=== PATIENT | male | born 1970 | race American Indian/Alaskan Native ===

== ENCOUNTER → 2018-03-24 | Outpatient (CLI) | payer OTHER ==
[2018-03-24 17:50] LABS: BASOPHILS ABSOLUTE AUTO 0.08 K/mm3 (0.00-0.23); BASOPHILS PERCENT AUTO 1 % (0-2); EOSINOPHILS ABSOLUTE AUTO 0.06 K/mm3 (0.00-0.68); EOSINOPHILS PERCENT AUTO 1 % (0-6); Hematocrit 40.2 % (37.0-53.0); Hemoglobin 13.8 g/dL (13.5-17.5); IMMATURE GRAN ABSOLUTE AUTO 0.02 K/mm3 (0.00-0.10); IMMATURE GRAN PERCENT AUTO 0 % (0-1); LYMPHOCYTES ABSOLUTE AUTO 3.11 K/mm3 (0.84-5.20); LYMPHOCYTES PERCENT AUTO 35 % (21-46); MONOCYTES ABSOLUTE AUTO 0.63 K/mm3 (0.16-1.47); MONOCYTES PERCENT AUTO 7 % (4-13); Mean Corpuscular HGB 29.5 pg (26.0-34.0); Mean Corpuscular HGB Conc 34.3 g/dL (31.5-36.5); Mean Corpuscular Volume 86 fL (80-100); Mean Platelet Volume 9.3 fL (9.1-12.4); NEUTROPHILS PERCENT AUTO 56 % (41-73); Platelet Count 218 K/mm3 (150-400); RDW Coefficient Variation 12.6 % (11.7-14.2); RDW Standard Deviation 39.5 fL (35.1-46.3); Red Blood Cell Count 4.68 M/mm3 (4.30-5.90)
== END | disposition home or self-care (01) ==
LOC: LAB SHORT 17:47 → LAB EV 17:47
PROVIDERS: Physician Assistant
DX: R22.1 Localized swelling, mass and lump, neck (principal)
CPT/HCPCS: 84443; 85025

== ENCOUNTER 2020-11-26 12:17 | Inpatient (IN) | payer OTHER ==
[~2020-11-26] VITALS: Ht 170.2 cm; Wt 94.4 kg
[2020-11-26] MEDS ORDERED: LEVOTHYROXINE112 MC2 PO (12:30)
[2020-11-26 12:35] LABS: BASOPHILS ABSOLUTE AUTO 0.06 K/mm3 (0.00-0.23); BASOPHILS PERCENT AUTO 1 % (0-2); EOSINOPHILS ABSOLUTE AUTO 0.01 K/mm3 (0.00-0.68); EOSINOPHILS PERCENT AUTO 0 % (0-6); Hematocrit 46.4 % (37.0-53.0); Hemoglobin 16.2 g/dL (13.5-17.5); IMMATURE GRAN ABSOLUTE AUTO 0.04 K/mm3 (0.00-0.10); IMMATURE GRAN PERCENT AUTO 0 % (0-1); LYMPHOCYTES ABSOLUTE AUTO 2.84 K/mm3 (0.84-5.20); LYMPHOCYTES PERCENT AUTO 27 % (21-46); MONOCYTES ABSOLUTE AUTO 0.63 K/mm3 (0.16-1.47); MONOCYTES PERCENT AUTO 6 % (4-13); Mean Corpuscular HGB 29.2 pg (26.0-34.0); Mean Corpuscular HGB Conc 34.9 g/dL (31.5-36.5); Mean Corpuscular Volume 84 fL (80-100); Mean Platelet Volume 8.9 fL (9.1-12.4); NEUTROPHILS ABSOLUTE AUTO 6.81 K/mm3 (1.96-9.15); NEUTROPHILS PERCENT AUTO 66 % (41-73); Platelet Count 272 K/mm3 (150-400); RDW Coefficient Variation 12.5 % (11.7-14.2); RDW Standard Deviation 38.3 fL (35.1-46.3); Red Blood Cell Count 5.54 M/mm3 (4.30-5.90); White Blood Cell Count 10.39 K/mm3 (4.00-11.30)
[2020-11-26 13:07] LABS: Alanine Aminotransfer (ALT/SGP 57 U/L (12-78); Albumin, Blood 4.4 g/dL (3.4-5.0); Albumin/Globulin Ratio 1.1 (0.8-1.8); Alk Phos 113 U/L (50-136); Anion Gap 9 mmol/L (6-16); Aspartate Aminotrans (AST/SGOT 61 U/L (12-37); Bilirubin, Total 0.7 mg/dL (0.1-1.0); Blood Urea Nitrogen 19 mg/dL (8-24); Bun/Creatinine Ratio 21.9 (12.0-20.0); CO2, Blood 24 mmol/L (21-32); Calcium, Blood 9.8 mg/dL (8.5-10.1); Chloride, Blood 104 mmol/L (98-108); Creatinine, Blood 0.87 mg/dL (0.60-1.20); Globulin, Blood 3.9 g/dL (2.2-4.0); Glomerular Filtration Rate >60 (60-); Glucose, Blood 132 mg/dL (70-99); International Normalized Ratio 0.94; Potassium, Blood 3.4 mmol/L (3.5-5.5); Prothrombin Time Results 10.1 Sec (9.7-11.5); Sodium, Blood 137 mmol/L (136-145); Total Protein, Blood 8.3 g/dL (6.4-8.2)
[2020-11-26 14:15] LABS: Influenza A, PCR NEGATIVE (NEGATIVE); Influenza B, PCR NEGATIVE (NEGATIVE); Resp Syncytial Virus, PCR NEGATIVE (NEGATIVE); SARS-Cov-2 (COVID-19) PCR, MMC POSITIVE (NEGATIVE)
--- NOTE | 2020-11-26 15:55 | NUR ---
ASSUMED CARE FROM [facility] PT ARRIVED FROM [facility] AT APPROXIMATELY 1520. TR AND ARM BOARD IN PLACE, PT HAD TWO LAD STENTS PLACED VIA RADIAL ACCESS. PT IS A&Ox4 AND IS SBA TO THE BATHROOM. PT IS ON RA, VS STABLE. RADIAL SITE HAS NO DRAINAGE, NO PAIN, PT HAS FULL SENSATION IN THE FINGERS, NO VISIBLE SIGNS OF HEMATOMA. PT REPORTS HAVING COVID IN 2020, POC TESTING CAME BACK NEGATIVE, RAPID TEST WAS POSITIVE. 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 PT IS RESTING IN BED AT THIS TIME
--- NOTE | 2020-11-26 17:53 | NUR ---
SHIFT SUMMARY PT ARRIVED FROM [facility] THIS AFTERNOON WITH TR BAND AND ARMBOARD IN PLACE FOLLOWING ANGIOGRAM WITH 2 LAD STENTS PLACED VIA RIGHT RADIAL ACCESS. PT REPORTS DULL CHEST PAIN BUT DENIES IT GETTING WORSE OR BEING SHARP. PT HAS BEEN GIVEN TYLENOL AND HAS A NITRO PATCH IN PLACE TO HELP WITH THE CHEST SORENESS. VS STABLE, PT RESTING IN BED. PT ABLE TO WALK TO THE BATHROOM, SBA. PT ENCOURAGED TO BE GENTLE USING HIS ARM. SCDS IN PLACE.
--- NOTE | 2020-11-26 19:10 | NUR ---
ASSUMED CARE RECEIVED REPORT FROM ALEKSANDRA MOORE; PT A&O X 4; VSS; MINOR CHEST PAIN 2 OF 10 REPORTED; TR BAND IN PLACE TO R RADIAL; ARM BOARD IN PLACE; EDUCATION PROVIDED TO NOT USE R ARM; O2 SATS >93 ON RA; NO DISTRESS NOTED; WATCHING TV; BELONGINGS AND CALL LIGHT IN REACH; BED IN LOWEST POSITION.
--- NOTE | 2020-11-26 22:40 | NUR ---
UPDATE PT REPORTING SIGNIFICANT CHEST PAIN W/ TINGLING IN HANDS; DISCUSSED W/ ISSA MARTINES, APPLICATION PROGRAMMER ANALYST; NEW ORDER FOR FENTANYL AND STAT TROPONIN; PT STATES 6 OF 10 PAIN; PT RR 22, STATING BREATHING FAST IS HELPING W/ PAIN; CALL LIGHT IN REACH
--- NOTE | 2020-11-26 23:36 | NUR ---
UPDATE NOTIFIED [facility] OF TROPONIN AND FENTANYL ADMINISTRATION; PAIN LEVEL 3 OF 10; PT STATES TINGLING IN FINGERS; FACE IS FLUSHED AND RR 22; NO TELE CHANGES NOTED; NOTIFIED AUTO ADJUDICATION SPECIALIST OF PT CONDITION; NEW ORDER GIVEN FOR PRN MORPHINE; WILL CONTINUE TO MONITOR CLOSELY.
--- NOTE | 2020-11-27 05:24 | NUR ---
SHIFT SUMMARY PT A&O X 4; PLEASANT & COMPLIANT W/ CARE; VSS; CHEST PAIN SOMEWHAT IMPROVED; O2 SATS >03 ON RA; PT SLEPT A FEW HOURS IN BETWEEN INTERVENTIONS; CALLS APPROPRIATELY; CURRENTLY DENIES NEEDS; CALL LIGHT IN REACH; BED IN LOWEST POSITION; WILL CONTIUE TO MONITOR CLOSELY UNTIL HAND OFF TO DAY SHIFT RN.
[2020-11-27 08:04] LABS: BASOPHILS ABSOLUTE AUTO 0.04 K/mm3 (0.00-0.23); BASOPHILS PERCENT AUTO 0 % (0-2); EOSINOPHILS ABSOLUTE AUTO 0.03 K/mm3 (0.00-0.68); EOSINOPHILS PERCENT AUTO 0 % (0-6); Hematocrit 43.7 % (37.0-53.0); Hemoglobin 15.1 g/dL (13.5-17.5); IMMATURE GRAN ABSOLUTE AUTO 0.03 K/mm3 (0.00-0.10); IMMATURE GRAN PERCENT AUTO 0 % (0-1); LYMPHOCYTES ABSOLUTE AUTO 2.03 K/mm3 (0.84-5.20); LYMPHOCYTES PERCENT AUTO 19 % (21-46); MONOCYTES ABSOLUTE AUTO 0.96 K/mm3 (0.16-1.47); MONOCYTES PERCENT AUTO 9 % (4-13); Mean Corpuscular HGB 29.4 pg (26.0-34.0); Mean Corpuscular HGB Conc 34.6 g/dL (31.5-36.5); Mean Corpuscular Volume 85 fL (80-100); Mean Platelet Volume 9.2 fL (9.1-12.4); NEUTROPHILS ABSOLUTE AUTO 7.84 K/mm3 (1.96-9.15); NEUTROPHILS PERCENT AUTO 72 % (41-73); Platelet Count 239 K/mm3 (150-400); RDW Coefficient Variation 12.8 % (11.7-14.2); RDW Standard Deviation 39.9 fL (35.1-46.3); Red Blood Cell Count 5.13 M/mm3 (4.30-5.90); White Blood Cell Count 10.93 K/mm3 (4.00-11.30)
[2020-11-27 08:35] LABS: Alanine Aminotransfer (ALT/SGP 63 U/L (12-78); Albumin, Blood 3.7 g/dL (3.4-5.0); Alk Phos 95 U/L (50-136); Anion Gap 9 mmol/L (6-16); Aspartate Aminotrans (AST/SGOT 210 U/L (12-37); Bilirubin, Total 1.4 mg/dL (0.1-1.0); Blood Urea Nitrogen 14 mg/dL (8-24); Bun/Creatinine Ratio 16.1 (12.0-20.0); CHOL/HDL RATIO 4.6; CO2, Blood 23 mmol/L (21-32); Calcium, Blood 8.8 mg/dL (8.5-10.1); Chloride, Blood 107 mmol/L (98-108); Cholesterol 226 mg/dL (50-200); Creatinine, Blood 0.87 mg/dL (0.60-1.20); Globulin, Blood 3.7 g/dL (2.2-4.0); Glomerular Filtration Rate >60 (60-); Glucose, Blood 119 mg/dL (70-99); HDL Cholesterol 49 mg/dL (>39); LDL/HDL RATIO 2.9; Low Density Lipoprotein Chol 144 mg/dL (0-110); Potassium, Blood 3.7 mmol/L (3.5-5.5); Sodium, Blood 139 mmol/L (136-145); Total Protein, Blood 7.4 g/dL (6.4-8.2); Triglycerides 167 mg/dL (30-160); Very Low Density Lipoprot Chol 33 mg/dL (6-32)
--- NOTE | 2020-11-27 08:47 | NUR ---
ASSUMED CARE FROM NOC RN PT WAS AWAKE DURING SHIFT REPORT. PT REPORTED A HEADACHE THIS MORNING BUT DENIED ANY CHEST PAIN, PRESSURE OR DISCOMFORT. PT REQUESTED TYLENOL FOR THE HEADACHE AND REFUSED THE NITRO PATCH THIS MORNING HE IS HAVING 0/10 CHEST PAIN. VS STABLE, PT ON RA. PT HAS ARMBOARD IN PLACE, TR BAND WAS REMOVED DURING NOC SHIFT AND TEGADERM WAS PUT INTO PLACE. NO DRAINAGE OR PAIN OR VISIBLE SIGN OF HEMATOMA. SOFT NONTENDER AT THE SITE, AND FULL SENSATION IN THE FINGERS. PT RESTING AT THIS TIME
--- NOTE | 2020-11-27 17:31 | NUR ---
SHIFT SUMMARY PT HAS REMAINED ON RA AND VS STABLE TODAY. PT DENIES CHEST PAIN, PRESSURE AND DISCOMFORT TODAY. PT HAS NOT BEEN SOB AND HAS BEEN INDEPENDENT IN THE ROOM TODAY WELL WHILE AMBULATING IN THE [place]. PT HAS SPENT THE AFTERNOON VISITING WITH HIS AND RELAXING WHILE WATCHING TV.
--- NOTE | 2020-11-27 19:35 | NUR ---
ASSUMED CARE RECEIVED REPORT FROM [facility] RN; PT A&O X 4; VSS; NSR NOTED ON TELE; O2 SATS >93 ON RA; PT CURRENTLY RESTING IN BED, NO DISTRESS NOTED; BELONGINGS AND CALL LIGHT IN REACH; BED IN LOWEST POSTION.
--- NOTE | 2020-11-28 04:35 | NUR ---
SHIFT SUMMARY PT A&O X 4; DENIES CHEST PAIN; VSS; NSR NOTED ON TELE; HR 60'S; O2 SATS >93 ON RA; PT STATES HE FEELS MUCH IMPROVED THIS SHIFT; INDEPENDENT IN ROOM; NO ACUTE CHANGES; CALL LIGHT IN REACH; BED IN LOWEST POSITION; WILL CONTINUE TO MONITOR CLOSELY UNTIL HAND OFF TO DAY SHIFT RN.
--- NOTE | 2020-11-28 09:56 | NUR ---
ASSUMED CARE FROM NOC RN, MORNING UPDATE PT WAS ASLEEP DURING MORNING REPORT. PT WOKE FOR MORNING MEDS, VS, ASSESSMENT AND BREAKFAST SOON AFTER. PT DENIED CHEST PAIN, PRESSURE AND DISCOMFORT THIS MORNING. VS STABLE, PT ON RA AND IS AWAITING DISCHARGE THIS MORNING
[2020-11-28] MEDS ORDERED: ASPI81CH PO (10:32)
[2020-11-28] MEDS ORDERED: ATOR80 PO (10:34)
[2020-11-28] MEDS ORDERED: CARV6.25 PO (10:35)
[2020-11-28] MEDS ORDERED: Lisinopril2.5 MG PO (10:36)
[2020-11-28] MEDS ORDERED: BRILINTA90 M1 PO (10:37)
[2020-11-28] MEDS ORDERED: NITR.4SL SL (10:38)
--- NOTE | 2020-11-28 11:20 | NUR ---
DISCHARGE PT RECEIVED DISCHARGE EDUCATION REGARDING NEW MEDICATIONS, HEART HEALTHY DIET, AND RADIAL SITE ACCESS AFTER CARE. PT VERBALLY AGREED AND SIGNED THE DISCHARGE CONTRACT. IV'S WERE DISCONTINUED AND PT TOLERATED WELL, CATH TIP INTACT. TELE WAS DC'D. VS STABLE, PT ON RA AND DENIED CHEST PAIN AND DISCOMFORT UPON DISCHARGE. PT LEFT THE UNIT AT APPROXIMATELY 1120 AND WALKED OUT TO THE CAR TO RETURN HOME ESCORTED BY ALEKSANDRA HUI AND HIS SPOUSE. PT WAS PROVIDED WITH FOLLOW UP PCP AND CARDIOLOGY APPOINTMENTS WELL A COUPON FOR [facility].
[2020-11-29] MEDS ORDERED: ONDA4ODT MM (10:57)
[2020-11-29] MEDS ORDERED: EFFIENT10 MG PO (11:00)
== END 2020-11-28 11:20 | disposition home or self-care (01) | DRG 246 ==
LOC: ER 12:17 → PCU 12:58 → ER 13:56 → ICUW 14:14 → PCU 15:25
PROVIDERS: Emergency Medicine; Nurse Practitioner Acute Care; Pharmacist; ADMIT Internal Medicine
PROC: 027035Z Dilation of Coronary Artery, One Artery with Two Drug-eluting Intraluminal Devices, Percutaneous Approach (ICD-10-PCS; principal; 2020-11-26)
PROC: 8E0ZXY6 Isolation (ICD-10-PCS; 2020-11-26)
PROC: 4A023N7 Measurement of Cardiac Sampling and Pressure, Left Heart, Percutaneous Approach (ICD-10-PCS; 2020-11-26)
PROC: B2111ZZ Fluoroscopy of Multiple Coronary Arteries using Low Osmolar Contrast (ICD-10-PCS; 2020-11-26)
DX: I21.4 Non-ST elevation (NSTEMI) myocardial infarction (principal); U07.1 COVID-19; I10 Essential (primary) hypertension; I25.10 Atherosclerotic heart disease of native coronary artery without angina pectoris; E78.00 Pure hypercholesterolemia, unspecified; E78.5 Hyperlipidemia, unspecified; E89.0 Postprocedural hypothyroidism; Z79.899 Other long term (current) drug therapy; Z87.891 Personal history of nicotine dependence
CPT/HCPCS: 0241U; 36415; 71045; 80053; 80061; 83036; 84484; 85025; 85347; 85610; 85730; 93005; 93010; 93306; 93458; 96374; 99152; 99153; 99285-25; A9270; C1725; C1769; C1874; C1887; C1894; C9600; J1644; J2250; J2270; J3010; J3246; J7030; J7050; Q9967

== ENCOUNTER 2020-11-28 22:17 | Observation (INO) | payer OTHER ==
[~2020-11-28] VITALS: Ht 170.2 cm; Wt 89.4 kg
[~2020-11-28 22:17] MED LIST: ASPI81CH PO; ATOR80 PO; BRILINTA90 M1 PO; CARV6.25 PO; LEVOTHYROXINE112 MC2 PO; Lisinopril2.5 MG PO; NITR.4SL SL
[2020-11-28 23:00] LABS: BASOPHILS ABSOLUTE AUTO 0.08 K/mm3 (0.00-0.23); BASOPHILS PERCENT AUTO 1 % (0-2); EOSINOPHILS ABSOLUTE AUTO 0.16 K/mm3 (0.00-0.68); EOSINOPHILS PERCENT AUTO 2 % (0-6); Hematocrit 42.7 % (37.0-53.0); IMMATURE GRAN ABSOLUTE AUTO 0.02 K/mm3 (0.00-0.10); IMMATURE GRAN PERCENT AUTO 0 % (0-1); LYMPHOCYTES ABSOLUTE AUTO 2.75 K/mm3 (0.84-5.20); LYMPHOCYTES PERCENT AUTO 29 % (21-46); MONOCYTES ABSOLUTE AUTO 0.91 K/mm3 (0.16-1.47); MONOCYTES PERCENT AUTO 10 % (4-13); Mean Corpuscular HGB 29.9 pg (26.0-34.0); Mean Corpuscular HGB Conc 35.1 g/dL (31.5-36.5); Mean Corpuscular Volume 85 fL (80-100); Mean Platelet Volume 9.3 fL (9.1-12.4); NEUTROPHILS ABSOLUTE AUTO 5.44 K/mm3 (1.96-9.15); NEUTROPHILS PERCENT AUTO 58 % (41-73); Platelet Count 261 K/mm3 (150-400); RDW Coefficient Variation 12.9 % (11.7-14.2); RDW Standard Deviation 39.8 fL (35.1-46.3); Red Blood Cell Count 5.01 M/mm3 (4.30-5.90); White Blood Cell Count 9.36 K/mm3 (4.00-11.30)
[2020-11-28 23:31] LABS: Alanine Aminotransfer (ALT/SGP 53 U/L (12-78); Albumin, Blood 3.4 g/dL (3.4-5.0); Albumin/Globulin Ratio 0.8 (0.8-1.8); Alk Phos 113 U/L (50-136); Anion Gap 7 mmol/L (6-16); Aspartate Aminotrans (AST/SGOT 84 U/L (12-37); Bilirubin, Total 0.8 mg/dL (0.1-1.0); Blood Urea Nitrogen 27 mg/dL (8-24); Bun/Creatinine Ratio 25.5 (12.0-20.0); CO2, Blood 23 mmol/L (21-32); Calcium, Blood 8.7 mg/dL (8.5-10.1); Chloride, Blood 108 mmol/L (98-108); Creatinine, Blood 1.06 mg/dL (0.60-1.20); Glomerular Filtration Rate >60 (60-); Glucose, Blood 115 mg/dL (70-99); Potassium, Blood 3.8 mmol/L (3.5-5.5); Sodium, Blood 138 mmol/L (136-145); Total Protein, Blood 7.4 g/dL (6.4-8.2)
--- NOTE | 2020-11-29 05:18 | NUR ---
PT TO PCU 11 VIA [facility] WITH ED RN @ 1210, PT SBA TO HOSPITAL BED, ORIENTED x4. VSS, PT ON ROOM AIR, PT DENIES CP AND STS ONLY FEELS SHORT OF BREATH WHEN HE IS FALLING ASLEEP. PT DENIES GI/ ISSUES. CALL LIGHT WITHIN REACH.
[2020-11-29] MEDS ORDERED: ONDA4ODT MM (10:57)
[2020-11-29] MEDS ORDERED: EFFIENT10 MG PO (11:00)
== END 2020-11-29 11:39 | disposition home or self-care (01) ==
LOC: ER 22:17 → PCU 22:18
PROVIDERS: Emergency Medicine; ADMIT Family Medicine
DX: R06.01 Orthopnea (principal); I21.4 Non-ST elevation (NSTEMI) myocardial infarction; U07.1 COVID-19; I10 Essential (primary) hypertension; E78.5 Hyperlipidemia, unspecified; E89.0 Postprocedural hypothyroidism; I25.10 Atherosclerotic heart disease of native coronary artery without angina pectoris; I95.9 Hypotension, unspecified; Z95.5 Presence of coronary angioplasty implant and graft; Z79.82 Long term (current) use of aspirin; Z79.02 Long term (current) use of antithrombotics/antiplatelets; Z87.891 Personal history of nicotine dependence
CPT/HCPCS: 36415; 71045; 71260; 80053; 83605; 83880; 84484; 85025; 93005; 93010; 94644; 96372; 99285-25; A9270; G0378; J1650; Q9967

== ENCOUNTER → 2020-12-04 | Outpatient (CLI) | payer OTHER ==
[~2020-12-04] MED LIST changes: +EFFIENT10 MG PO; +ONDA4ODT MM
== END | disposition home or self-care (01) ==
LOC: LAB SHORT 08:11 → PLD 08:11
DX: L82.1 Other seborrheic keratosis (principal)
CPT/HCPCS: 88305

== ENCOUNTER 2021-10-14 08:44 | Day surgery (SDC) | payer OTHER ==
[~2021-10-14] VITALS: Ht 170.2 cm; Wt 96.7 kg
--- NOTE | 2021-10-14 09:45 | NUR ---
10/14/21 0945 JAISON MCCRARY History, Chart, Medications and Allergies reviewed before start of procedure. 3-LEAD EKG REVIEWED WITH PHYSICIAN PRIOR TO START OF PROCEDURE. MONITOR INTACT WITH CONTINUOUS PULSE OXIMETRY AND INTERMITTENT BP. O2 VIA N/C INTACT THROUGHOUT SEDATION/PROCEDURE. PATIENT DETERMINED TO BE ASA APPROPRIATE FOR PROPOFOL SEDATION PRIOR TO START OF PROCEDURE BY DR. GARCIA.
--- NOTE | 2021-10-14 10:49 | NUR ---
Patient up to Ambulate independently. Gait steady. Discharge instructions reviewed with patient. Patient verbalizes understanding. Copy given to patient to take home. Discharged via wheelchair to private car for ride home WITH
== END 2021-10-14 10:45 | disposition home or self-care (01) ==
LOC: ORSCMMR 08:44 → ORD 09:45 → ORSCMMR 10:45
DX: Z12.11 Encounter for screening for malignant neoplasm of colon (principal); Z80.0 Family history of malignant neoplasm of digestive organs; D12.0 Benign neoplasm of cecum; D12.5 Benign neoplasm of sigmoid colon; I25.2 Old myocardial infarction; I25.10 Atherosclerotic heart disease of native coronary artery without angina pectoris; E03.9 Hypothyroidism, unspecified; Z79.01 Long term (current) use of anticoagulants; Z79.82 Long term (current) use of aspirin; Z79.899 Other long term (current) drug therapy
CPT/HCPCS: 88305; J2250; J2704; J7120

== ENCOUNTER 2024-08-04 22:22 | Emergency (ER) | payer OTHER ==
[~2024-08-04] VITALS: Ht 170.2 cm; Wt 89.8 kg
[2024-08-04 23:03] LABS: BASOPHILS ABSOLUTE AUTO 0.07 K/mm3 (0.00-0.23); BASOPHILS PERCENT AUTO 1 % (0-2); EOSINOPHILS ABSOLUTE AUTO 0.17 K/mm3 (0.00-0.68); EOSINOPHILS PERCENT AUTO 3 % (0-6); Hemoglobin 15.3 g/dL (13.5-17.5); IMMATURE GRAN ABSOLUTE AUTO 0.01 K/mm3 (0.00-0.10); IMMATURE GRAN PERCENT AUTO 0 % (0-1); LYMPHOCYTES ABSOLUTE AUTO 2.46 K/mm3 (0.84-5.20); LYMPHOCYTES PERCENT AUTO 38 % (21-46); MONOCYTES ABSOLUTE AUTO 0.43 K/mm3 (0.16-1.47); MONOCYTES PERCENT AUTO 7 % (4-13); Mean Corpuscular HGB 31.3 pg (26.0-34.0); Mean Corpuscular HGB Conc 36.4 g/dL (31.5-36.5); Mean Corpuscular Volume 86 fL (80-100); Mean Platelet Volume 8.5 fL (9.1-12.4); NEUTROPHILS PERCENT AUTO 51 % (41-73); Platelet Count 218 K/mm3 (150-400); Red Blood Cell Count 4.89 M/mm3 (4.30-5.90); White Blood Cell Count 6.44 K/mm3 (4.00-11.30)
[2024-08-04 23:19] LABS: Albumin, Blood 3.4 g/dL (3.4-5.0); Bilirubin, Total 0.8 mg/dL (0.1-1.0); Bun/Creatinine Ratio 20.3 (12.0-20.0); Creatinine, Blood 0.94 mg/dL (0.60-1.20); Globulin, Blood 3.4 g/dL (2.2-4.0); Potassium, Blood 3.3 mmol/L (3.5-5.5); Total Protein, Blood 6.8 g/dL (6.4-8.2)
[2024-08-05] MEDS ORDERED: Potassium Chloride 20 MEQ TabCR PO ONE (00:05)
[2024-08-05 00:09] VITALS: BP 148/94
== END 2024-08-05 00:15 | disposition home or self-care (01) ==
LOC: ER 22:22
PROVIDERS: Student in an Organized Health Care Education/Training Program
DX: K80.20 Calculus of gallbladder without cholecystitis without obstruction (principal); I25.2 Old myocardial infarction; E03.9 Hypothyroidism, unspecified; I10 Essential (primary) hypertension; E78.5 Hyperlipidemia, unspecified; Z79.82 Long term (current) use of aspirin; Z79.899 Other long term (current) drug therapy; Z88.8 Allergy status to other drugs, medicaments and biological substances
CPT/HCPCS: 80053; 83690; 84484; 85025; 93005; 93010; 99284-25; A9270

== ENCOUNTER 2024-11-16 05:57 | Day surgery (SDC) | payer OTHER ==
[~2024-11-16] VITALS: Ht 168 cm; Wt 97.0 kg
[2024-11-16] VITALS (11 sets, daily range): BP systolic 136–158; BP diastolic 80–100
[~2024-11-16 05:57] MED LIST changes: +ATORVASTATIN CA80 M1 PO; -LEVOTHYROXINE112 MC2 PO; +LEVSOD112 PO; +LISI5 PO; -Lisinopril2.5 MG PO; +OZEMPIC1 MG/0.72 SC; +VASCEPA1 G1 PO
[2024-11-16] MEDS ORDERED: CefOXitin Sodium 2,000 MG in NS 50 ML IV SCH (06:25)
[2024-11-16] MEDS ORDERED: Lactated Ringer's 1,000 ML IV SCH (06:25)
[2024-11-16] MEDS ORDERED: Indocyanine Green 25 MG Vial IV ONE (06:25)
[2024-11-16] MEDS ORDERED: Bupivacaine 0.5% HCl 5 MG/ML 30MLVIAL ONE (07:04)
[2024-11-16] MEDS ORDERED: Bupivacaine 0.25% Epi 1:200000 30 ML Vial ONE ×2 (07:06→07:11)
[2024-11-16] MEDS ORDERED: Midazolam HCl 1MG / ML 2ML Vial ONE (07:14)
[2024-11-16] MEDS ORDERED: FentaNYL Citrate 50 MCG/ML 2 ML Injection ONE ×3 (07:14→09:31)
[2024-11-16] MEDS ORDERED: propofoL 20 ML IV ONE (07:14)
[2024-11-16] MEDS ORDERED: Lidocaine HCl 2% 20 ML MDV ONE (07:15)
[2024-11-16] MEDS ORDERED: SuccINYLCHOLINE Chloride 100 MG/5 ML 5MLSYR ONE (07:15)
[2024-11-16] MEDS ORDERED: Rocuronium Bromide 10 MG/ML 5ML Injection IV ONE ×3 (07:15→08:06)
--- NOTE | 2024-11-16 07:27 | NUR ---
History, Chart, Medications and Allergies reviewed before start of procedure. Patient up to Ambulate independently. Gait steady. Pre-Op teaching done. Pt verbalizes understanding. Patient confirms NPO status and agrees with scheduled surgery. Patient reports completing Chlorhexadine shower X2 prior to admission to hospital. Surgical site prepped with 2% Chlorhexidine cloth wipe. Patient States Post-Procedure ride home has been arranged.
[2024-11-16] MEDS ORDERED: Metoclopramide HCl 5MG / ML 2ML Vial ONE (08:11)
[2024-11-16] MEDS ORDERED: Ondansetron HCl 2 MG / ML 2ML Vial ONE (08:11)
[2024-11-16] MEDS ORDERED: HYDROcodone 5-APAP 325 TAB PO PRN (08:35)
[2024-11-16] MEDS ORDERED: Albuterol HFA200 ACT/6.7 GM INH ONE (08:39)
[2024-11-16] MEDS ORDERED: Ondansetron HCl 2 MG / ML 2ML Vial IV PRN (08:40)
[2024-11-16] MEDS ORDERED: HYDROmorphone HCl/Pf 1MG SYR IV PRN ×2 (08:40)
[2024-11-16] MEDS ORDERED: FentaNYL Citrate 50 MCG/ML 2 ML Injection IV PRN (08:40)
[2024-11-16] MEDS ORDERED: Ketorolac Tromethamine 30mg Vial ONE (08:47)
[2024-11-16] MEDS ORDERED: Sugammadex Sodium 200 MG/2ML SDV (100 MG/ML) ONE (08:47)
[2024-11-16] MEDS ORDERED: Ipratropium/Albuterol SulF 2.5-0.5MG/3 ML Amp ONE (09:25)
[2024-11-16] MEDS ORDERED: OxyCODONE 5 mg/Acetamin 325 mg TABLET PO PRN (10:00)
[2024-11-16] MEDS ORDERED: Lidocaine 2% Jelly Uro-Jet ONE (10:06)
--- NOTE | 2024-11-16 10:25 | NUR ---
Patient up to Ambulate independently. Gait steady. Discharge instructions reviewed with patient. Patient verbalizes understanding. Copy given to patient to take home. Dressing to procedure site clean, dry, intact with no visible drainage, swelling, erythema or bruising noted. Discharged via wheelchair to private car for ride home.ALL BELONGINGS RETURNED TO PATIENT.
== END 2024-11-16 23:00 | disposition home or self-care (01) ==
LOC: ORSCMMR 05:57 → ORD 07:30 → ORSCMMR 23:00
PROVIDERS: Surgery
PROC: 3E0T3BZ Introduction of Anesthetic Agent into Peripheral Nerves and Plexi, Percutaneous Approach (ICD-10-PCS; principal; 2024-11-16 07:30)
PROC: BF031ZZ Plain Radiography of Gallbladder and Bile Ducts using Low Osmolar Contrast (ICD-10-PCS; principal; 2024-11-16 07:30)
PROC: 8E0W4CZ Robotic Assisted Procedure of Trunk Region, Percutaneous Endoscopic Approach (ICD-10-PCS; principal; 2024-11-16 07:30)
PROC: 0FT44ZZ Resection of Gallbladder, Percutaneous Endoscopic Approach (ICD-10-PCS; principal; 2024-11-16 07:30)
DX: K80.10 Calculus of gallbladder with chronic cholecystitis without obstruction (principal); K66.0 Peritoneal adhesions (postprocedural) (postinfection); K76.0 Fatty (change of) liver, not elsewhere classified; I10 Essential (primary) hypertension; E03.9 Hypothyroidism, unspecified; E78.5 Hyperlipidemia, unspecified; Z79.899 Other long term (current) drug therapy; Z79.82 Long term (current) use of aspirin; I25.2 Old myocardial infarction; Z87.891 Personal history of nicotine dependence; Z79.85 Long-term (current) use of injectable non-insulin antidiabetic drugs
CPT/HCPCS: 82947; 88304; A9270; J0330; J0694; J1885; J2250; J2405; J2704; J2765; J3010; J7120